=== PATIENT | male | born 1985 | race Two or more races ===

== ENCOUNTER 2021-02-13 18:18 | Emergency (ER) | payer OTHER ==
[~2021-02-13] VITALS: Ht 177.8 cm; Wt 105.6 kg
[2021-02-13 18:34] VITALS: BP 118/75
[2021-02-13] MEDS ORDERED: ASPIRIN 81 MG TABLET CHEW ONE (20:16)
[2021-02-13] MEDS ORDERED: TREPROSTINIL (21:00)
[2021-02-13] MEDS ORDERED: SILD20TA PO (21:00)
[2021-02-13] MEDS ORDERED: POTA20TA89 PO (21:00)
[2021-02-13] MEDS ORDERED: GABA600T7 PO (21:00)
[2021-02-13] MEDS ORDERED: MACI10TA PO (21:00)
[2021-02-13] MEDS ORDERED: ASPI-963 PO (21:00)
[2021-02-13] MEDS ORDERED: FURO20TA3 PO (21:00)
--- NOTE | 2021-02-13 22:14 | NUR ---
CARE ASSUMED FOR DC. PT DC'D HOME WITH RX X 1 AND UNDERSTANDING OF INSTRUCTIONS. PT AND FAMILY MEMBER ESCORTED TO DC DESK. PT GAIT STEADY.
== END 2021-02-13 22:19 | disposition home or self-care (01) ==
LOC: ED 21:45
DX: L03.116 Cellulitis of left lower limb (principal); R60.0 Localized edema; I10 Essential (primary) hypertension
CPT/HCPCS: 99284